=== PATIENT | male | born 1950 | race American Indian/Alaskan Native ===

== ENCOUNTER 2016-05-13 10:39 | Outpatient (CLI) | payer MEDICARE | END 2016-05-13 10:40 | disposition home or self-care (01) | LOC: MRI 10:39 | PROVIDERS: ATTEND Specialist | DX: G54.0 Brachial plexus disorders (principal) | CPT/HCPCS: 71550 ==

== ENCOUNTER 2016-07-07 12:52 | Outpatient (CLI) | payer MEDICARE ==
[2016-07-09 04:11] LABS: Albumin 4.1 g/dL (3.8-4.8); Gamma Globulin 1.1 g/dL (0.8-1.7)
== END 2016-07-07 12:53 | disposition home or self-care (01) ==
LOC: LAB 12:52
PROVIDERS: ATTEND Specialist
DX: G62.9 Polyneuropathy, unspecified (principal)
CPT/HCPCS: 36415; 82607; 82747; 84165; 85652; 86038

== ENCOUNTER 2016-09-01 09:37 | Outpatient (CLI) | payer MEDICARE ==
--- NOTE | 2016-09-01 13:14 | Cat Scan Report ---
CT scan of abdomen and pelvis without IV contrast: History: Left-sided abdominal pain. Findings: Mild fibrosis lower lobes lungs. No consolidation or mass. No pleural or pericardial effusion. Borderline enlarged liver measuring 17-19 cm. Small circumscribed hypodensities liver probably biliary hamartomas or small cysts. No intrahepatic or extrahepatic duct dilatation. Normal gallbladder. Normal pancreas. Thickwalled stomach and duodenum with mucosal prominence. Normal spleen. Right kidney kady 6.09 cm in vertical dimension and the left kidney measures 11 cm in vertical dimension. There is circumscribed 1 cm hypodensity left kidney suggestive of cyst. There is also noted a small exophytic lesion lower pole left kidney measuring 1.1 cm probably a cyst. No calculi. Atherosclerotic abdominal aorta without aneurysm. Periaortic retroperitoneal lymph nodes measuring up to 9 mm. Gaseous colon with moderate to large amount of stool in colon. Small umbilical hernia containing fat. Impression: Probable peptic ulcer disease. Small right kidney. No hydronephrosis. Retroperitoneum lymph nodes. Small umbilical hernia containing fat.
== END 2016-09-01 09:38 | disposition home or self-care (01) ==
LOC: SPVIMAG 09:37
PROVIDERS: ATTEND Family Medicine
DX: K42.9 Umbilical hernia without obstruction or gangrene (principal); J84.10 Pulmonary fibrosis, unspecified
CPT/HCPCS: 74150